=== PATIENT | female | born 1995 | race Caucasian/White ===

== ENCOUNTER 2017-10-19 18:28 | Emergency (ER) | payer OTHER, MEDICAID ==
[~2017-10-19] VITALS: Ht 167.6 cm; Wt 108.9 kg
[~2017-10-19 18:28] MED LIST: AMOXICILLIN 50500 MG; AMOXICILLIN875 MG PO; AUGMENTIN 875-1 EACH PO; BACTRIM DS TAB1 EACH PO; CARAFATE 1 GM TA1 G1 PO; CARAFATE 1 GM TA1 GM PO; CIPROFLOXACIN500 M1 PO; CIPROFLOXIN HC2.5 M1 OTIC; DARVOCET-N 1001 EACH PO; DEPO-PROVERA; DESYREL50 MG; FLAGYL500 MG PO; FLONASE 0.05%50 MCG NASAL; HYDROCODONE-AP1 EAC6 PO; IBUPROFEN 800800 M1 PO; NOHOMEMEDICATIONS; NORCO 5-325 TA1 EAC1 PO; NORCO 5-325 TA1 EACH PO; OMEPRAZOLE20 M2 PO; PENICILLIN VK500 MG PO; PEPCID AC20 M1 PO; PEPCID20 MG PO; PREDNISONE 20 M20 M1 PO; PREVACID15 MG PO; PRILOSEC 20 MG20 MG PO; TESSALON200 MG PO; TORADOL 10 MG T10 MG PO; TRINATE TABLET1 TAB; ULTRAM 50MG TAB50 MG PO; ZOFRAN ODT4 MG PO; ZOLOFT; ZOLOFT 50 MG TA50 M1 PO; ZOLOFT50 MG PO
[2017-10-19] MEDS ORDERED: BIRTH CONTROL (18:42)
[2017-10-19] MEDS ORDERED: ANTIBIOTIC (18:43)
[2017-10-19] MEDS ORDERED: PERCOCET PO (18:43)
[2017-10-19] MEDS ORDERED: IBUPROFEN 600600 M1 PO (18:43)
[2017-10-19 20:09] LABS: URINE BILIRUBIN NEGATIVE (Negative); URINE BLOOD NEGATIVE (Negative); URINE CLARITY CLEAR; URINE COLOR YELLOW; URINE GLUCOSE-RANDOM NEGATIVE (Negative); URINE KETONES NEGATIVE (Negative); URINE LEUKOCYTES-REFLEX NEGATIVE (Negative); URINE NITRITE-REFLEX NEGATIVE (Negative); URINE PROTEIN NEGATIVE (Negative); URINE UROBILINOGEN 0.2 E.U./dl (0.2-1.0)
[2017-10-19 20:29] VITALS: BP 145/72
== END 2017-10-19 20:31 | disposition home or self-care (01) ==
LOC: M.ERS 18:28
PROVIDERS: Nurse Practitioner Family
DX: K59.00 Constipation, unspecified (principal); L98.9 Disorder of the skin and subcutaneous tissue, unspecified; F41.9 Anxiety disorder, unspecified; F32.9 Major depressive disorder, single episode, unspecified; Z90.49 Acquired absence of other specified parts of digestive tract; Z88.1 Allergy status to other antibiotic agents; Z88.8 Allergy status to other drugs, medicaments and biological substances

== ENCOUNTER 2017-11-06 15:11 | Emergency (ER) | payer OTHER, MEDICAID ==
[~2017-11-06] VITALS: Ht 167.6 cm; Wt 108.9 kg
[~2017-11-06 15:11] MED LIST changes: +ANTIBIOTIC; +BIRTH CONTROL; +IBUPROFEN 600600 M1 PO; +PERCOCET PO
[2017-11-06] MEDS ORDERED: CIPROFLOXIN HC2.5 M1 OPHTHALMIC (15:48)
[2017-11-06 16:08] VITALS: BP 124/79
== END 2017-11-06 16:10 | disposition home or self-care (01) ==
LOC: M.ERS 15:11
DX: H10.9 Unspecified conjunctivitis (principal); F41.9 Anxiety disorder, unspecified; F32.9 Major depressive disorder, single episode, unspecified; Z90.49 Acquired absence of other specified parts of digestive tract; Z88.8 Allergy status to other drugs, medicaments and biological substances; Z88.1 Allergy status to other antibiotic agents

== ENCOUNTER 2018-04-04 22:22 | Emergency (ER) | payer OTHER, MEDICAID ==
[~2018-04-04] VITALS: Ht 170.2 cm; Wt 92.5 kg
[~2018-04-04 22:22] MED LIST changes: +CIPROFLOXIN HC2.5 M1 OPHTHALMIC
[2018-04-04 23:05] LABS: ABSOLUTE BASOPHILS 0.1 thou/uL (0.0-0.2); ABSOLUTE EOSINOPHILS 0.1 thou/uL (0.0-0.7); EOSINOPHILS 1.2 %; MPV 7.1 fl. (7.2-11.1); NUCLEATED RBCS 0 /100WBC; WBC 9.6 thou/uL (4.0-11.0)
[2018-04-04 23:07] LABS: ABSOLUTE MONOCYTES 0.8 thou/uL (0.0-1.2); ABSOLUTE NEUTROPHILS 5.7 thou/uL (1.6-8.1); BASOPHILS 0.6 %; HEMATOCRIT 44.3 % (37.0-47.0); HEMOGLOBIN 14.5 gm/dL (12.0-15.0); LYMPHOCYTES 30.8 %; MCH 27.3 pg (26.0-34.0); MCHC 32.8 g/dL (28.0-37.0); MCV 83.2 fL (80.0-100.0); MONOCYTES 7.8 %; PLATELET COUNT* 437 thou/uL (150-400); POLYS 59.6 %; RBC 5.32 mil/uL (4.20-5.00); RDW-CV 14.6 % (10.5-14.5)
[2018-04-04 23:08] LABS: URINE BILIRUBIN NEGATIVE (Negative); URINE BLOOD NEGATIVE (Negative); URINE CLARITY CLEAR; URINE COLOR YELLOW; URINE GLUCOSE-RANDOM NEGATIVE (Negative); URINE KETONES NEGATIVE (Negative); URINE LEUKOCYTES-REFLEX NEGATIVE (Negative); URINE NITRITE-REFLEX NEGATIVE (Negative); URINE PROTEIN NEGATIVE (Negative); URINE SPECIFIC GRAVITY >= 1.030 (1.005-1.030); URINE UROBILINOGEN 0.2 E.U./dl (0.2-1.0)
[2018-04-04 23:17] LABS: CALCIUM 9.6 mg/dL (8.5-10.1); CREATININE 1.1 mg/dL (0.6-1.3); POTASSIUM 3.8 mmol/L (3.5-5.1)
[2018-04-04 23:22] LABS: TOTAL BILIRUBIN 0.4 mg/dL (<0.1-1.0); TOTAL PROTEIN 7.5 g/dL (6.4-8.2)
[2018-04-04 23:33] VITALS: BP 112/64
== END 2018-04-05 00:21 | disposition home or self-care (01) ==
LOC: M.ERS 22:22
PROVIDERS: Family Medicine
DX: R10.30 Lower abdominal pain, unspecified (principal); F41.9 Anxiety disorder, unspecified; F32.9 Major depressive disorder, single episode, unspecified; Z88.1 Allergy status to other antibiotic agents; Z88.4 Allergy status to anesthetic agent; Z90.49 Acquired absence of other specified parts of digestive tract

== ENCOUNTER 2018-04-23 16:46 | Emergency (ER) | payer OTHER, MEDICAID ==
[~2018-04-23] VITALS: Ht 167.6 cm; Wt 89.4 kg
[2018-04-23 17:13] LABS: URINE COLOR YELLOW
[2018-04-23 17:14] LABS: URINE CLARITY CLOUDY; URINE GLUCOSE-RANDOM NEGATIVE (Negative); URINE KETONES NEG (Negative); URINE PROTEIN TRACE (Negative); URINE SPECIFIC GRAVITY > 1.030 (1.005-1.030)
[2018-04-23 17:15] LABS: ICTOTEST (BILI CONFIRMATORY) Positive (Negative); URINE BILIRUBIN 1+ (Negative); URINE BLOOD NEG (Negative); URINE LEUKOCYTES-REFLEX NEGATIVE (Negative); URINE NITRITE-REFLEX NEGATIVE (Negative); URINE UROBILINOGEN 0.2 E.U./dl (0.2-1.0)
[2018-04-23 17:20] LABS: ABSOLUTE BASOPHILS 0.1 thou/uL (0.0-0.2); ABSOLUTE LYMPHOCYTES 3.1 thou/uL (0.8-5.3); ABSOLUTE MONOCYTES 0.4 thou/uL (0.0-1.2); ABSOLUTE NEUTROPHILS 4.6 thou/uL (1.6-8.1); BASOPHILS 1.1 %; EOSINOPHILS 0.6 %; HEMATOCRIT 41.1 % (37.0-47.0); HEMOGLOBIN 13.6 gm/dL (12.0-15.0); LYMPHOCYTES 37.6 %; MCH 27.1 pg (26.0-34.0); MCV 82.3 fL (80.0-100.0); MONOCYTES 5.2 %; MPV 6.9 fl. (7.2-11.1); NUCLEATED RBCS 0 /100WBC; PLATELET COUNT* 438 thou/uL (150-400); POLYS 55.5 %; RDW-CV 14.7 % (10.5-14.5); WBC 8.4 thou/uL (4.0-11.0)
[2018-04-23 17:28] LABS: CALCIUM 9.3 mg/dL (8.5-10.1); CREATININE 1.1 mg/dL (0.6-1.3); POTASSIUM 3.4 mmol/L (3.5-5.1)
[2018-04-23 17:33] LABS: ALBUMIN 4.1 g/dL (3.4-5.0); TOTAL BILIRUBIN 0.6 mg/dL (<0.1-1.0); TOTAL PROTEIN 7.5 g/dL (6.4-8.2)
[2018-04-23 18:35] VITALS: BP 133/85
== END 2018-04-23 18:37 | disposition home or self-care (01) ==
LOC: M.ERS 16:46
PROVIDERS: Nurse Practitioner Family
DX: R51 Headache (principal); R09.81 Nasal congestion; F32.9 Major depressive disorder, single episode, unspecified; F41.9 Anxiety disorder, unspecified; Z90.49 Acquired absence of other specified parts of digestive tract; Z88.1 Allergy status to other antibiotic agents; Z88.4 Allergy status to anesthetic agent

== ENCOUNTER 2018-08-08 18:28 | Emergency (ER) | payer OTHER, MEDICAID ==
[~2018-08-08] VITALS: Ht 170.2 cm; Wt 90.7 kg
[2018-08-08 18:33] VITALS: BP 137/86
[2018-08-08] MEDS ORDERED: NORCO 5-325 TA1 EAC1 PO (18:44)
[2018-08-08] MEDS ORDERED: CLEOCIN HCL300 MG PO (18:44)
== END 2018-08-08 18:58 | disposition home or self-care (01) ==
LOC: M.ERS 18:28
DX: K04.7 Periapical abscess without sinus (principal); F41.9 Anxiety disorder, unspecified; F32.9 Major depressive disorder, single episode, unspecified; Z90.49 Acquired absence of other specified parts of digestive tract; Z88.8 Allergy status to other drugs, medicaments and biological substances; Z88.1 Allergy status to other antibiotic agents

== ENCOUNTER 2018-08-24 17:42 | Emergency (ER) | payer OTHER, MEDICAID ==
[~2018-08-24] VITALS: Ht 167.6 cm; Wt 90.7 kg
[~2018-08-24 17:42] MED LIST changes: +CLEOCIN HCL300 MG PO
[2018-08-24] MEDS ORDERED: ZPAK PO (18:15)
[2018-08-24] MEDS ORDERED: NABUMETONE 750750 M1 PO (18:15)
[2018-08-24 18:21] VITALS: BP 132/81
== END 2018-08-24 18:22 | disposition home or self-care (01) ==
LOC: M.ERS 17:42
DX: J06.9 Acute upper respiratory infection, unspecified (principal); F32.9 Major depressive disorder, single episode, unspecified; F41.9 Anxiety disorder, unspecified; Z90.49 Acquired absence of other specified parts of digestive tract; Z85.828 Personal history of other malignant neoplasm of skin; Z88.4 Allergy status to anesthetic agent; Z88.8 Allergy status to other drugs, medicaments and biological substances

== ENCOUNTER → 2018-10-14 | Outpatient (CLI) | payer OTHER, MEDICAID ==
[~2018-10-14] MED LIST changes: +NABUMETONE 750750 M1 PO; +ZPAK PO
== END ==
LOC: M.RAD 16:59
DX: S69.91XA Unspecified injury of right wrist, hand and finger(s), initial encounter (principal); X58.XXXA Exposure to other specified factors, initial encounter; Y93.89 Activity, other specified; Y92.89 Other specified places as the place of occurrence of the external cause; Y99.8 Other external cause status

== ENCOUNTER 2019-04-28 10:36 | Emergency (ER) | payer OTHER, MEDICAID ==
[~2019-04-28] VITALS: Ht 167.6 cm; Wt 81.7 kg
[2019-04-28] MEDS ORDERED: BUTALB-APAP-CA1 EACH PO (11:59)
[2019-04-28] MEDS ORDERED: ZANAFLEX4 MG PO (11:59)
[2019-04-28] MEDS ORDERED: NAPROSYN500 MG PO (11:59)
[2019-04-28 12:17] VITALS: BP 125/76
== END 2019-04-28 12:19 | disposition home or self-care (01) ==
LOC: M.ERS 10:36
DX: R51 Headache (principal); M54.2 Cervicalgia; F32.9 Major depressive disorder, single episode, unspecified; F41.9 Anxiety disorder, unspecified; Z88.8 Allergy status to other drugs, medicaments and biological substances; Z88.1 Allergy status to other antibiotic agents; Z90.49 Acquired absence of other specified parts of digestive tract

== ENCOUNTER 2019-08-14 14:17 | Emergency (ER) | payer OTHER, MEDICAID ==
[~2019-08-14] VITALS: Ht 167.6 cm; Wt 88.5 kg
[~2019-08-14 14:17] MED LIST changes: +BUTALB-APAP-CA1 EACH PO; +NAPROSYN500 MG PO; +ZANAFLEX4 MG PO
[2019-08-14] MEDS ORDERED: LAMICTAL25 MG PO (14:31)
[2019-08-14 14:46] LABS: URINE BILIRUBIN NEGATIVE (Negative); URINE BLOOD NEGATIVE (Negative); URINE CLARITY CLEAR; URINE COLOR YELLOW; URINE GLUCOSE-RANDOM NEGATIVE (Negative); URINE KETONES NEGATIVE (Negative); URINE LEUKOCYTES-REFLEX TRACE (Negative); URINE NITRITE-REFLEX NEGATIVE (Negative); URINE PROTEIN NEGATIVE (Negative); URINE SPECIFIC GRAVITY 1.025 (1.005-1.030); URINE UROBILINOGEN 0.2 E.U./dl (0.2-1.0)
[2019-08-14 14:53] LABS: ABSOLUTE BASOPHILS 0.1 thou/uL (0.0-0.2); ABSOLUTE EOSINOPHILS 0.2 thou/uL (0.0-0.7); ABSOLUTE LYMPHOCYTES 2.9 thou/uL (0.8-5.3); ABSOLUTE MONOCYTES 0.5 thou/uL (0.0-1.2); ABSOLUTE NEUTROPHILS 3.9 thou/uL (1.6-8.1); BASOPHILS 1.7 %; EOSINOPHILS 2.2 %; HEMATOCRIT 41.4 % (37.0-47.0); HEMOGLOBIN 14.1 gm/dL (12.0-15.0); LYMPHOCYTES 38.8 %; MCH 29.2 pg (26.0-34.0); MCV 85.8 fL (80.0-100.0); MONOCYTES 6.3 %; MPV 6.3 fl. (7.2-11.1); NUCLEATED RBCS 0 /100WBC; PLATELET COUNT* 551 thou/uL (150-400); RBC 4.82 mil/uL (4.20-5.00); RDW-CV 14.3 % (10.5-14.5); WBC 7.5 thou/uL (4.0-11.0)
[2019-08-14 14:54] LABS: AMP/METHAMP POSITIVE (Negative); BARBITURATES Negative (Negative); BENZODIAZEPINES Negative (Negative); COCAINE Negative (Negative); METHADONE Negative (Negative); OPIATES Negative (Negative); PCP Negative (Negative); THC Negative (Negative)
[2019-08-14 14:59] LABS: SQUAMOUS >10 Many /LPF (0-3)
[2019-08-14 15:00] LABS: CALCIUM OXALATE >10 Many /LPF (None Seen); CASTS None Seen /LPF (None Seen); MUCUS >6 Heavy strn/LPF (None Seen); URINE RBC 0-2 Rare /HPF (0-2); URINE WBC-REFLEX 0-5 Rare /HPF (0-5)
[2019-08-14 15:04] LABS: CALCIUM 8.7 mg/dL (8.5-10.1); CREATININE 0.9 mg/dL (0.6-1.3); POTASSIUM 3.8 mmol/L (3.5-5.1)
[2019-08-14 15:09] LABS: ALBUMIN 3.7 g/dL (3.4-5.0); TOTAL BILIRUBIN 0.2 mg/dL (<0.1-1.0); TOTAL PROTEIN 7.3 g/dL (6.4-8.2)
[2019-08-14 15:34] VITALS: BP 145/99
== END 2019-08-14 15:35 | disposition home or self-care (01) ==
LOC: M.ERS 14:17
PROVIDERS: Nurse Practitioner Family
DX: M25.472 Effusion, left ankle (principal); M25.471 Effusion, right ankle; T43.625A Adverse effect of amphetamines, initial encounter; R20.2 Paresthesia of skin; Z88.8 Allergy status to other drugs, medicaments and biological substances; Z90.49 Acquired absence of other specified parts of digestive tract; Z79.899 Other long term (current) drug therapy; Y92.89 Other specified places as the place of occurrence of the external cause

== ENCOUNTER 2019-09-06 16:45 | Emergency (ER) | payer OTHER, MEDICAID ==
[~2019-09-06] VITALS: Ht 167.6 cm; Wt 88.5 kg
[~2019-09-06 16:45] MED LIST changes: +LAMICTAL25 MG PO
[2019-09-06 17:49] LABS: INFLUENZA A ANTIGEN Negative (Negative); INFLUENZA B ANTIGEN Negative (Negative)
[2019-09-06] MEDS ORDERED: MUCINEX600 MG PO (18:09)
[2019-09-06] MEDS ORDERED: DOXYCYCLINE 10100 MG PO (18:09)
[2019-09-06 18:25] VITALS: BP 146/96
== END 2019-09-06 18:28 | disposition home or self-care (01) ==
LOC: M.ERS 16:45
PROVIDERS: Emergency Medicine
DX: J01.90 Acute sinusitis, unspecified (principal); Z88.1 Allergy status to other antibiotic agents; Z88.8 Allergy status to other drugs, medicaments and biological substances; Z90.49 Acquired absence of other specified parts of digestive tract

== ENCOUNTER 2019-10-14 11:13 | Emergency (ER) | payer OTHER, MEDICAID ==
[~2019-10-14] VITALS: Ht 170.2 cm; Wt 86.2 kg
[~2019-10-14 11:13] MED LIST changes: +DOXYCYCLINE 10100 MG PO; +MUCINEX600 MG PO
[2019-10-14] MEDS ORDERED: LISINOPRIL2.5 MG (11:31)
[2019-10-14 11:45] LABS: URINE BILIRUBIN NEGATIVE (Negative); URINE BLOOD TRACE (Negative); URINE CLARITY SL CLOUDY; URINE COLOR YELLOW; URINE GLUCOSE-RANDOM NEGATIVE (Negative); URINE KETONES NEGATIVE (Negative); URINE LEUKOCYTES-REFLEX NEGATIVE (Negative); URINE PROTEIN TRACE (Negative); URINE SPECIFIC GRAVITY >= 1.030 (1.005-1.030); URINE UROBILINOGEN 0.2 E.U./dl (0.2-1.0)
[2019-10-14 11:46] LABS: URINE NITRITE-REFLEX POSITIVE (Negative)
[2019-10-14 11:53] LABS: SQUAMOUS 0-3 Few /LPF (0-3)
[2019-10-14 11:54] LABS: BACTERIA-REFLEX >30 Many /HPF (None Seen); CASTS None Seen /LPF (None Seen); CRYSTALS None Seen /LPF (None Seen); MUCUS None Seen strn/LPF (None Seen); URINE RBC 3-10 Few /HPF (0-2); URINE WBC-REFLEX 0-5 Rare /HPF (0-5)
[2019-10-14 11:59] LABS: ABSOLUTE LYMPHOCYTES 2.5 thou/uL (0.8-5.3); ABSOLUTE MONOCYTES 0.5 thou/uL (0.0-1.2); ABSOLUTE NEUTROPHILS 4.9 thou/uL (1.6-8.1); BASOPHILS 0.1 %; EOSINOPHILS 0.6 %; HEMATOCRIT 40.1 % (37.0-47.0); HEMOGLOBIN 13.4 gm/dL (12.0-15.0); LYMPHOCYTES 31.6 %; MCH 28.4 pg (26.0-34.0); MCHC 33.3 g/dL (28.0-37.0); MCV 85.2 fL (80.0-100.0); MONOCYTES 5.9 %; MPV 6.4 fl. (7.2-11.1); NUCLEATED RBCS 0 /100WBC; PLATELET COUNT* 530 thou/uL (150-400); POLYS 61.8 %; RBC 4.71 mil/uL (4.20-5.00); RDW-CV 13.6 % (10.5-14.5); WBC 7.9 thou/uL (4.0-11.0)
[2019-10-14 12:10] LABS: APTT 28.3 Seconds (25.0-31.3); CALCIUM 8.3 mg/dL (8.5-10.1); CREATININE 1.1 mg/dL (0.6-1.3); POTASSIUM 4.3 mmol/L (3.5-5.1); PROTIME 10.2 Seconds (9.20-11.50)
[2019-10-14 12:15] LABS: ALBUMIN 3.7 g/dL (3.4-5.0); TOTAL BILIRUBIN 0.6 mg/dL (<0.1-1.0); TOTAL PROTEIN 7.6 g/dL (6.4-8.2)
[2019-10-14 13:01] VITALS: BP 132/87
[2019-10-14 13:23] LABS: AMP/METHAMP POSITIVE (Negative); BARBITURATES Negative (Negative); BENZODIAZEPINES Negative (Negative); COCAINE Negative (Negative); METHADONE Negative (Negative); OPIATES Negative (Negative); PCP Negative (Negative); THC Negative (Negative)
--- NOTE | 2019-10-16 16:07 | EKG ---
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
== END 2019-10-14 13:02 | disposition home or self-care (01) ==
LOC: M.ERS 11:13
PROVIDERS: Family Medicine
DX: F41.9 Anxiety disorder, unspecified (principal); R42 Dizziness and giddiness; I10 Essential (primary) hypertension; Z88.1 Allergy status to other antibiotic agents; Z88.8 Allergy status to other drugs, medicaments and biological substances; Z90.49 Acquired absence of other specified parts of digestive tract

== ENCOUNTER 2019-11-25 23:48 | Emergency (ER) | payer OTHER, MEDICAID ==
[~2019-11-25] VITALS: Ht 170.2 cm; Wt 90.7 kg
[~2019-11-25 23:48] MED LIST changes: +LISINOPRIL2.5 MG PO
[2019-11-25] MEDS ORDERED: METFORMIN HCL500 M3 PO (23:58)
[2019-11-25] MEDS ORDERED: SPRINTEC1 EACH PO (23:59)
[2019-11-26 00:30] LABS: ABSOLUTE BASOPHILS 0.1 thou/uL (0.0-0.2); ABSOLUTE EOSINOPHILS 0.1 thou/uL (0.0-0.7); ABSOLUTE LYMPHOCYTES 3.7 thou/uL (0.8-5.3); ABSOLUTE MONOCYTES 0.5 thou/uL (0.0-1.2); ABSOLUTE NEUTROPHILS 5.4 thou/uL (1.6-8.1); BASOPHILS 1.1 %; EOSINOPHILS 0.8 %; HEMATOCRIT 41.2 % (37.0-47.0); LYMPHOCYTES 37.5 %; MCH 28.8 pg (26.0-34.0); MCV 84.8 fL (80.0-100.0); MONOCYTES 4.8 %; MPV 6.9 fl. (7.2-11.1); NUCLEATED RBCS 0 /100WBC; PLATELET COUNT* 598 thou/uL (150-400); POLYS 55.8 %; RBC 4.87 mil/uL (4.20-5.00); RDW-CV 14.5 % (10.5-14.5); WBC 9.8 thou/uL (4.0-11.0)
[2019-11-26 00:35] LABS: CALCIUM 8.9 mg/dL (8.5-10.1); CREATININE 1.2 mg/dL (0.6-1.3); POTASSIUM 3.4 mmol/L (3.5-5.1)
[2019-11-26 00:45] LABS: ALBUMIN 3.6 g/dL (3.4-5.0); TOTAL BILIRUBIN 0.3 mg/dL (<0.1-1.0); TOTAL PROTEIN 7.9 g/dL (6.4-8.2)
[2019-11-26 01:03] VITALS: BP 136/87
--- NOTE | 2019-11-27 12:12 | EKG ---
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1995 Requested By: Davon Arevalo Order Number: [id number] MD: Dean Ware Measurements Intervals [place] Rate: 102 P: 75 [place]: 118 QRS: 44 QRSD: 99 T: 36 QT: 336 QTc: 438 Interpretive Statements Sinus tachycardia RSR' in V1 or V2, right VCD or RVH Baseline wander in lead(s) II,III,aVF,V3,V4,V5 Compared to ECG 10/14/2019 11:19:25 RSR' in V1 or V2 now present Electronically Signed On 11-27-2019 12:10:04 CDT by Dean Ware [email or web address] <ELECTRONICALLY SIGNED> By: Dean Ware MD, [facility] 11/27/19 1210 50 235 Dean Ware MD, [facility] /EPI
== END 2019-11-26 01:03 | disposition home or self-care (01) ==
LOC: M.ERS 23:48
PROVIDERS: Emergency Medicine Emergency Medical Services
DX: R07.89 Other chest pain (principal); I10 Essential (primary) hypertension; F41.9 Anxiety disorder, unspecified; F32.9 Major depressive disorder, single episode, unspecified; Z90.49 Acquired absence of other specified parts of digestive tract; Z88.8 Allergy status to other drugs, medicaments and biological substances

== ENCOUNTER 2019-12-09 14:25 | Emergency (ER) | payer OTHER, MEDICAID ==
[~2019-12-09] VITALS: Ht 170.2 cm; Wt 94.3 kg
[~2019-12-09 14:25] MED LIST changes: +METFORMIN HCL500 M3 PO; +SPRINTEC1 EACH PO
[2019-12-09] MEDS ORDERED: AMITRIPTYLINE H25 M3 PO (14:37)
[2019-12-09 15:07] LABS: URINE BILIRUBIN NEGATIVE (Negative); URINE BLOOD NEGATIVE (Negative); URINE CLARITY CLEAR; URINE COLOR YELLOW; URINE GLUCOSE-RANDOM NEGATIVE (Negative); URINE KETONES NEGATIVE (Negative); URINE LEUKOCYTES-REFLEX NEGATIVE (Negative); URINE NITRITE-REFLEX NEGATIVE (Negative); URINE PROTEIN NEGATIVE (Negative); URINE SPECIFIC GRAVITY 1.025 (1.005-1.030); URINE UROBILINOGEN 0.2 E.U./dl (0.2-1.0)
[2019-12-09 15:39] LABS: ABSOLUTE BASOPHILS 0.1 thou/uL (0.0-0.2); ABSOLUTE EOSINOPHILS 0.1 thou/uL (0.0-0.7); ABSOLUTE LYMPHOCYTES 3.1 thou/uL (0.8-5.3); ABSOLUTE MONOCYTES 0.6 thou/uL (0.0-1.2); BASOPHILS 0.8 %; HEMATOCRIT 40.3 % (37.0-47.0); HEMOGLOBIN 13.7 gm/dL (12.0-15.0); LYMPHOCYTES 30.8 %; MCH 29.1 pg (26.0-34.0); MCV 85.6 fL (80.0-100.0); MONOCYTES 6.4 %; MPV 7.1 fl. (7.2-11.1); NUCLEATED RBCS 0 /100WBC; PLATELET COUNT* 548 thou/uL (150-400); RBC 4.71 mil/uL (4.20-5.00); RDW-CV 14.3 % (10.5-14.5); WBC 9.9 thou/uL (4.0-11.0)
[2019-12-09 15:48] LABS: CALCIUM 8.9 mg/dL (8.5-10.1); POTASSIUM 4.4 mmol/L (3.5-5.1)
[2019-12-09 15:52] LABS: ALBUMIN 3.6 g/dL (3.4-5.0); TOTAL BILIRUBIN 0.2 mg/dL (<0.1-1.0); TOTAL PROTEIN 7.8 g/dL (6.4-8.2)
[2019-12-09] MEDS ORDERED: BENTYL 20 MG TA20 M1 PO (18:30)
[2019-12-09] MEDS ORDERED: ONDANSETRON HCL4 M2 PO (18:30)
[2019-12-09] MEDS ORDERED: NORCO 5-325 TA1 EAC1 PO (18:30)
[2019-12-09 19:00] VITALS: BP 122/68
== END 2019-12-09 19:00 | disposition home or self-care (01) ==
LOC: M.ERS 14:25
PROVIDERS: Nurse Practitioner Family
DX: K52.9 Noninfective gastroenteritis and colitis, unspecified (principal); I10 Essential (primary) hypertension; E28.2 Polycystic ovarian syndrome; F32.9 Major depressive disorder, single episode, unspecified; F41.9 Anxiety disorder, unspecified; F17.210 Nicotine dependence, cigarettes, uncomplicated; Z90.49 Acquired absence of other specified parts of digestive tract; Z88.8 Allergy status to other drugs, medicaments and biological substances

== ENCOUNTER 2019-12-18 11:46 | Emergency (ER) | payer OTHER, MEDICAID ==
[~2019-12-18] VITALS: Ht 170.2 cm; Wt 94.3 kg
[~2019-12-18 11:46] MED LIST changes: +AMITRIPTYLINE H25 M3 PO; +BENTYL 20 MG TA20 M1 PO; +ONDANSETRON HCL4 M2 PO
[2019-12-18 12:33] LABS: URINE BILIRUBIN NEGATIVE (Negative); URINE BLOOD 3+ (Negative); URINE CLARITY CLEAR; URINE COLOR YELLOW; URINE GLUCOSE-RANDOM NEGATIVE (Negative); URINE KETONES NEGATIVE (Negative); URINE LEUKOCYTES-REFLEX NEGATIVE (Negative); URINE NITRITE-REFLEX NEGATIVE (Negative); URINE PROTEIN NEGATIVE (Negative); URINE SPECIFIC GRAVITY 1.015 (1.005-1.030); URINE UROBILINOGEN 0.2 E.U./dl (0.2-1.0)
[2019-12-18 12:41] LABS: SQUAMOUS >10 Many /LPF (0-3)
[2019-12-18 12:42] LABS: AMP/METHAMP POSITIVE (Negative); BACTERIA-REFLEX 1-9 Few /HPF (None Seen); BARBITURATES Negative (Negative); BENZODIAZEPINES Negative (Negative); CASTS None Seen /LPF (None Seen); COCAINE Negative (Negative); CRYSTALS None Seen /LPF (None Seen); METHADONE Negative (Negative); MUCUS 0-3 Light strn/LPF (None Seen); OPIATES Negative (Negative); PCP Negative (Negative); THC Negative (Negative); URINE RBC 3-10 Few /HPF (0-2); URINE WBC-REFLEX 0-5 Rare /HPF (0-5)
[2019-12-18 13:18] LABS: ABSOLUTE BASOPHILS 0.1 thou/uL (0.0-0.2); ABSOLUTE EOSINOPHILS 0.1 thou/uL (0.0-0.7); ABSOLUTE LYMPHOCYTES 3.3 thou/uL (0.8-5.3); ABSOLUTE MONOCYTES 0.6 thou/uL (0.0-1.2); BASOPHILS 1.3 %; EOSINOPHILS 1.4 %; HEMATOCRIT 37.8 % (37.0-47.0); HEMOGLOBIN 12.6 gm/dL (12.0-15.0); LYMPHOCYTES 36.3 %; MCH 29.1 pg (26.0-34.0); MCHC 33.5 g/dL (28.0-37.0); MCV 86.9 fL (80.0-100.0); MONOCYTES 6.3 %; MPV 6.8 fl. (7.2-11.1); NUCLEATED RBCS 0 /100WBC; PLATELET COUNT* 524 thou/uL (150-400); POLYS 54.7 %; RBC 4.34 mil/uL (4.20-5.00); RDW-CV 14.5 % (10.5-14.5); WBC 9.2 thou/uL (4.0-11.0)
[2019-12-18 13:26] LABS: CALCIUM 8.5 mg/dL (8.5-10.1); CREATININE 0.9 mg/dL (0.6-1.3); POTASSIUM 3.5 mmol/L (3.5-5.1)
[2019-12-18 13:31] LABS: ALBUMIN 3.6 g/dL (3.4-5.0); TOTAL BILIRUBIN 0.3 mg/dL (<0.1-1.0); TOTAL PROTEIN 7.4 g/dL (6.4-8.2)
[2019-12-18 13:57] LABS: SALICYLATE < 2.8 mg/dL (2.8-20.0)
[2019-12-18 13:59] LABS: ACETAMINOPHEN < 2 ug/mL (10-30); ALCOHOL < 10 mg/dL (<10)
[2019-12-18 16:43] VITALS: BP 136/90
--- NOTE | 2019-12-19 10:41 | EKG ---
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 : 1995 Requested By: Davon Arevalo Order Number: [id number] MD: Dean Ware Measurements Intervals [place] Rate: 91 P: 70 [place]: 137 QRS: 40 QRSD: 95 T: 32 QT: 362 QTc: 446 Interpretive Statements Sinus rhythm Baseline wander in lead(s) II,III,aVR,aVF Compared to ECG 11/25/2019 23:51:41 Sinus tachycardia no longer present Electronically Signed On 12-19-2019 10:40:35 CDT by Dean Ware [email or web address] <ELECTRONICALLY SIGNED> By: Dean Ware MD, [facility] 12/19/19 1040 1221 1221 Dean Ware MD, [facility] /EPI
== END 2019-12-18 16:44 | disposition home or self-care (01) ==
LOC: M.ERS 11:46
PROVIDERS: Emergency Medicine Emergency Medical Services
DX: R44.3 Hallucinations, unspecified (principal); R07.9 Chest pain, unspecified; I10 Essential (primary) hypertension; F32.9 Major depressive disorder, single episode, unspecified; F41.9 Anxiety disorder, unspecified; F17.210 Nicotine dependence, cigarettes, uncomplicated; F12.10 Cannabis abuse, uncomplicated; Z90.89 Acquired absence of other organs; Z79.899 Other long term (current) drug therapy; Z88.1 Allergy status to other antibiotic agents

== ENCOUNTER 2020-02-03 11:24 | Emergency (ER) | payer OTHER, MEDICAID ==
[~2020-02-03] VITALS: Ht 170.2 cm; Wt 94.8 kg
[2020-02-03 11:46] LABS: HEMATOCRIT 41.8 % (37.0-47.0); HEMOGLOBIN 14.3 gm/dL (12.0-15.0); MCH 29.6 pg (26.0-34.0); MCHC 34.3 g/dL (28.0-37.0); MCV 86.3 fL (80.0-100.0); MPV 6.6 fl. (7.2-11.1); NUCLEATED RBCS 0 /100WBC; PLATELET COUNT* 556 thou/uL (150-400); RBC 4.84 mil/uL (4.20-5.00); RDW-CV 15.3 % (10.5-14.5)
[2020-02-03 11:56] LABS: CREATININE 0.9 mg/dL (0.6-1.3); POTASSIUM 4.2 mmol/L (3.5-5.1)
[2020-02-03 11:58] LABS: APTT 26.5 Seconds (25.0-31.3); PROTIME 9.9 Seconds (9.20-11.50)
[2020-02-03 12:10] LABS: ALBUMIN 3.7 g/dL (3.4-5.0); CK-MB MASS 0.8 ng/mL (<0.5-3.6); MAGNESIUM 1.9 mg/dL (1.8-2.4); TOTAL BILIRUBIN 0.3 mg/dL (<0.1-1.0); TOTAL PROTEIN 7.8 g/dL (6.4-8.2)
[2020-02-03 12:53] LABS: ABSOLUTE LYMPHOCYTES 1.4 thou/uL (0.8-5.3); ABSOLUTE MONOCYTES 0.7 thou/uL (0.0-1.2); ABSOLUTE NEUTROPHILS 20.9 thou/uL (1.6-8.1); PLATELET ESTIMATE INCREASED
[2020-02-03 12:54] LABS: HYPOCHROMASIA Occasional
[2020-02-03] MEDS ORDERED: ZOFRAN ODT4 MG SUBLING (13:52)
[2020-02-03 13:58] VITALS: BP 119/83
--- NOTE | 2020-02-03 15:51 | EKG ---
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1995 Requested By: Robert German Order Number: [id number] MD: Dean Ware Measurements Intervals [place] Rate: 125 P: 142 [place]: 162 QRS: -50 QRSD: 115 T: -27 QT: 338 QTc: 488 Interpretive Statements Sinus tachycardia Low voltage, extremity and precordial leads Nonspecific T abnormalities, inferior leads Baseline wander in lead(s) I,II,aVR,aVL,V1,V2 Compared to ECG 12/18/2019 12:21:45 Low QRS voltage now present Sinus rhythm no longer present Electronically Signed On 02-03-2020 15:51:15 CDT by Dean Ware [email or web address] <ELECTRONICALLY SIGNED> By: Dean Ware MD, [facility] 02/03/20 1551 1129 1129 Dean Ware MD, [facility] /EPI
== END 2020-02-03 14:00 | disposition home or self-care (01) ==
LOC: M.ERS 11:24
PROVIDERS: Family Medicine
DX: R07.89 Other chest pain (principal); R11.2 Nausea with vomiting, unspecified; I10 Essential (primary) hypertension; Z88.1 Allergy status to other antibiotic agents; Z88.8 Allergy status to other drugs, medicaments and biological substances; Z90.49 Acquired absence of other specified parts of digestive tract

== ENCOUNTER 2020-02-03 16:01 | Emergency (ER) | payer OTHER, MEDICAID ==
[~2020-02-03] VITALS: Ht 170.2 cm; Wt 94.8 kg
[~2020-02-03 16:01] MED LIST changes: +ZOFRAN ODT4 MG SUBLING
[2020-02-03 16:20] VITALS: BP 122/75
== END 2020-02-03 16:21 | disposition home or self-care (01) ==
LOC: M.ERS 16:01
DX: F41.0 Panic disorder [episodic paroxysmal anxiety] (principal); F15.90 Other stimulant use, unspecified, uncomplicated; F32.9 Major depressive disorder, single episode, unspecified; I10 Essential (primary) hypertension; Z88.4 Allergy status to anesthetic agent; Z88.1 Allergy status to other antibiotic agents; Z79.899 Other long term (current) drug therapy; Z90.49 Acquired absence of other specified parts of digestive tract; Z98.890 Other specified postprocedural states

== ENCOUNTER 2020-12-19 19:26 | Emergency (ER) | payer OTHER, MEDICAID ==
[~2020-12-19] VITALS: Ht 170.2 cm; Wt 113.4 kg
[2020-12-19] MEDS ORDERED: ASA81BEC PO (19:30)
[2020-12-19 19:43] LABS: URINE BILIRUBIN NEGATIVE (Negative); URINE BLOOD NEGATIVE (Negative); URINE CLARITY SL CLOUDY; URINE COLOR YELLOW; URINE GLUCOSE-RANDOM NEGATIVE (Negative); URINE KETONES NEGATIVE (Negative); URINE NITRITE-REFLEX NEGATIVE (Negative); URINE PROTEIN TRACE (Negative); URINE SPECIFIC GRAVITY 1.025 (1.005-1.030); URINE UROBILINOGEN 0.2 E.U./dl (0.2-1.0)
[2020-12-19 19:47] LABS: URINE LEUKOCYTES-REFLEX 2+ (Negative)
[2020-12-19 19:49] LABS: ABSOLUTE BASOPHILS 0.1 thou/uL (0.0-0.2); ABSOLUTE EOSINOPHILS 0.2 thou/uL (0.0-0.7); ABSOLUTE LYMPHOCYTES 2.5 thou/uL (0.8-5.3); ABSOLUTE MONOCYTES 0.6 thou/uL (0.0-1.2); ABSOLUTE NEUTROPHILS 8.8 thou/uL (1.6-8.1); BASOPHILS 0.9 %; EOSINOPHILS 1.5 %; HEMATOCRIT 35.3 % (37.0-47.0); HEMOGLOBIN 11.7 gm/dL (12.0-15.0); LYMPHOCYTES 20.4 %; MCH 26.7 pg (26.0-34.0); MCHC 33.2 g/dL (28.0-37.0); MCV 80.4 fL (80.0-100.0); MONOCYTES 4.9 %; MPV 6.3 fl. (7.2-11.1); NUCLEATED RBCS 0 /100WBC; PLATELET COUNT* 490 thou/uL (150-400); POLYS 72.3 %; WBC 12.2 thou/uL (4.0-11.0)
[2020-12-19 19:51] LABS: AMP/METHAMP POSITIVE (Negative); BARBITURATES Negative (Negative); BENZODIAZEPINES Negative (Negative); COCAINE Negative (Negative); CRYSTALS None Seen /LPF (None Seen); FINE GRANULAR CASTS 0-3 Few /LPF (None Seen); HYALINE CASTS 0-3 Few /LPF (None Seen); METHADONE Negative (Negative); MUCUS 4-6 Moderate strn/LPF (None Seen); OPIATES Negative (Negative); PCP Negative (Negative); SQUAMOUS >10 Many /LPF (0-3); THC Negative (Negative)
[2020-12-19 19:52] LABS: BACTERIA-REFLEX >30 Many /HPF (None Seen); URINE RBC 0-2 Rare /HPF (0-2); URINE WBC-REFLEX 6-15 Few /HPF (0-5)
[2020-12-19 19:58] LABS: CALCIUM 9.5 mg/dL (8.5-10.1); CREATININE 0.9 mg/dL (0.6-1.3); POTASSIUM 3.9 mmol/L (3.5-5.1)
[2020-12-19 20:03] LABS: ALBUMIN 2.6 g/dL (3.4-5.0); TOTAL BILIRUBIN 0.1 mg/dL (<0.1-1.0); TOTAL PROTEIN 6.9 g/dL (6.4-8.2)
[2020-12-19] MEDS ORDERED: PHENERGAN 25 MG25 M1 PO (20:24)
[2020-12-19] MEDS ORDERED: AMOXICILLIN875 MG PO (20:25)
[2020-12-19 20:41] VITALS: BP 127/74
--- NOTE | 2020-12-20 11:40 | EKG ---
[place] [address] ELECTROCARDIOGRAM REPORT Name: ARTEMIO REED Room: 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
== END 2020-12-19 20:42 | disposition home or self-care (01) ==
LOC: M.ERS 19:26
PROVIDERS: Emergency Medicine
DX: G44.209 Tension-type headache, unspecified, not intractable (principal); I10 Essential (primary) hypertension; E28.2 Polycystic ovarian syndrome; I11.0 Hypertensive heart disease with heart failure; Z88.1 Allergy status to other antibiotic agents; Z88.6 Allergy status to analgesic agent; Z90.49 Acquired absence of other specified parts of digestive tract